=== PATIENT | female | born 1955 | race Caucasian/White ===

== ENCOUNTER 2020-07-07 12:17 | Emergency (ER) | payer BC ==
[2020-07-07 13:34] LABS: HEMOGLOBIN 11.9 gm/dl (12.3-15.3); RED BLOOD COUNT 4.01 M/UL (4.00-5.10); WHITE BLOOD COUNT 9.8 K/UL (4.5-11.0)
[2020-07-07 14:01] LABS: BUN/CREATININE RATIO 20 (0-10)
== END 2020-07-07 15:25 | disposition left against medical advice (07) ==
LOC: ER1 12:17
PROVIDERS: Physician Assistant Medical
DX: J90 Pleural effusion, not elsewhere classified (principal); E87.1 Hypo-osmolality and hyponatremia; R53.83 Other fatigue; E03.9 Hypothyroidism, unspecified; I10 Essential (primary) hypertension; E11.9 Type 2 diabetes mellitus without complications; Z79.899 Other long term (current) drug therapy; Z90.49 Acquired absence of other specified parts of digestive tract
CPT/HCPCS: 36415; 71045; 80053; 81001; 82436; 82533; 82550; 82553; 82570; 83735; 83874; 83880; 83935; 84133; 84300; 84439; 84443; 84484; 84550; 85007; 85027; 85610; 93005; 99285

== ENCOUNTER 2020-07-09 13:21 | Inpatient (IN) | payer BC ==
[~2020-07-09] VITALS: Ht 170.2 cm; Wt 54.4 kg
[2020-07-09 14:48] LABS: HEMOGLOBIN 11.2 gm/dl (12.3-15.3); RED BLOOD COUNT 3.87 M/UL (4.00-5.10)
[2020-07-09 14:56] LABS: WHITE BLOOD COUNT 1.8 K/UL (4.5-11.0)
[2020-07-09 15:54] LABS: BUN/CREATININE RATIO 21 (0-10)
[2020-07-09] MEDS ORDERED: LEVOTHYROXINE88 MCG PO (19:27)
[2020-07-09] MEDS ORDERED: LISINOPRIL10 MG PO (19:28)
[2020-07-09] MEDS ORDERED: GLUCOPHAGE 500500 MG PO (19:29)
[2020-07-10 06:57] LABS: HEMOGLOBIN 10.3 gm/dl (12.3-15.3); RED BLOOD COUNT 3.66 M/UL (4.00-5.10); WHITE BLOOD COUNT 1.6 K/UL (4.5-11.0)
[2020-07-10 07:02] LABS: BUN/CREATININE RATIO 21 (0-10)
[2020-07-10 10:58] LABS: TOTAL PROTEIN, BODY FLUID 3.5 gm/dL
[2020-07-11 04:09] LABS: HEMOGLOBIN 10.4 gm/dl (12.3-15.3); RED BLOOD COUNT 3.48 M/UL (4.00-5.10)
[2020-07-11 04:33] LABS: BUN/CREATININE RATIO 30 (0-10)
[2020-07-11 04:49] LABS: WHITE BLOOD COUNT 14.4 K/UL (4.5-11.0)
[2020-07-12 11:00] LABS: BUN/CREATININE RATIO 21 (0-10)
[2020-07-12 11:26] LABS: HEMOGLOBIN 9.9 gm/dl (12.3-15.3); RED BLOOD COUNT 3.29 M/UL (4.00-5.10); WHITE BLOOD COUNT 12.5 K/UL (4.5-11.0)
--- NOTE | 2020-07-12 14:50 | NUR ---
SPOKE WITH MARYELLEN IN DIETARY, SHE HAD CALLED ME WANTING TO KNOW WHAT THE FAMILY AND THE PATIENT HAD IN MIND FOR NUTRITION. I SPOKE WITH THE PATIENTS AND HE STATES THAT THE PATIENTS WISHES WERE THAT NO TUBING OF ANY KIND BE PLACED IN HER BODY TO MAKE HER LIVE LONGER, THE PATIENT IS A DNR. THE PATIENTS STATES THAT YESTERDAY HE FED HER A BAG OF CHIPS, A BAG OF M&M'S, 2 BOTTLES OF POP, A CUP OF FRUIT AND HALF OF A PIECE OF CHOCOLATE PIE. THE ACCOUNT SERVICES SPECIALIST HAS BEEN NOTIFIED OF THIS AND CASE MANAGEMENT HAS SPOKE WITH THE PATIENT'S WELL AND THEY HAVE DECIDED THAT SHE WILL GO HOME ON HOSPICE. CASE MANAGEMENT STATE THAT IT WILL PROBABLY BE TOMORROW WHEN THE PATIENT WILL GET TO GO HOME. AT THIS TIME THE PATIENT HAS REQUESTED THAT THE BIPAP BE REMOVED AND THE NASAL CANNULA BE APPLIED SO SHE CAN EAT SOME PUDDING AND DRINK SOME WATER. THE PATIENT IS LYING IN BED, NO DISTRESS NOTED, NO COMPLAINT OF PAIN VOICED, AND THE OF THE PATIENT IS FEEDING HER AT THIS TIME. CALL LIGHT WITHIN REACH. HOB UP, STAFF ASSISTING WITH ALL NEEDS.
[2020-07-13 06:39] LABS: BUN/CREATININE RATIO 23 (0-10)
[2020-07-13 08:13] LABS: HEMOGLOBIN 10.5 gm/dl (12.3-15.3); RED BLOOD COUNT 3.59 M/UL (4.00-5.10); WHITE BLOOD COUNT 12.4 K/UL (4.5-11.0)
[2020-07-13] MEDS ORDERED: LOPRESSOR 25 MG25 MG PO (10:34)
[2020-07-13] MEDS ORDERED: AUGMENTIN 875-1 EACH PO (10:35)
[2020-07-13] MEDS ORDERED: IPRAT-ALBUT 0.5-3 ML INH (14:39)
--- NOTE | 2020-07-13 19:51 | NUR ---
PATIENT LEFT FLOOR TO BE DISCHARGED HOME ON [facility]. TRANSPORTED BY EMS. IV TAKEN OUT. VITALS UPON TRANSFER WAS 150/77 (96), 94% ON 7L HIGH TED NC, 27 RR, 98 HR, 98.0 TEMP. PATIENT HAS NO COMPLAINTS. PATIENT LEFT FLOOR AT 1945
== END 2020-07-13 19:45 | disposition home health service (06) | DRG 180 ==
LOC: ER1 13:21 → CDU 16:43 → PROG CARE 16:43
PROVIDERS: Family Medicine; Internal Medicine; ADMIT Internal Medicine Infectious Disease
PROC: 0W9930Z Drainage of Right Pleural Cavity with Drainage Device, Percutaneous Approach (ICD-10-PCS; 2020-07-10)
PROC: 5A09457 Assistance with Respiratory Ventilation, 24-96 Consecutive Hours, Continuous Positive Airway Pressure (ICD-10-PCS; 2020-07-10)
PROC: B24BZZZ Ultrasonography of Heart with Aorta (ICD-10-PCS; principal; 2020-07-11)
PROC: 0BB38ZX Excision of Right Main Bronchus, Via Natural or Artificial Opening Endoscopic, Diagnostic (ICD-10-PCS; 2020-07-12)
DX: C34.91 Malignant neoplasm of unspecified part of right bronchus or lung (principal); J96.01 Acute respiratory failure with hypoxia; J18.9 Pneumonia, unspecified organism; E43 Unspecified severe protein-calorie malnutrition; Z20.822 Contact with and (suspected) exposure to COVID-19; C77.9 Secondary and unspecified malignant neoplasm of lymph node, unspecified; C79.51 Secondary malignant neoplasm of bone; J91.0 Malignant pleural effusion; R04.2 Hemoptysis; E87.1 Hypo-osmolality and hyponatremia; J44.0 Chronic obstructive pulmonary disease with (acute) lower respiratory infection; Z68.1 Body mass index [BMI] 19.9 or less, adult; I27.20 Pulmonary hypertension, unspecified; E83.42 Hypomagnesemia; L89.322 Pressure ulcer of left buttock, stage 2; L89.312 Pressure ulcer of right buttock, stage 2; R63.4 Abnormal weight loss; E83.39 Other disorders of phosphorus metabolism; I10 Essential (primary) hypertension; R77.8 Other specified abnormalities of plasma proteins; R00.0 Tachycardia, unspecified; F17.210 Nicotine dependence, cigarettes, uncomplicated; E03.9 Hypothyroidism, unspecified; E11.9 Type 2 diabetes mellitus without complications; Z98.51 Tubal ligation status; Z90.49 Acquired absence of other specified parts of digestive tract; Z98.42 Cataract extraction status, left eye; Z98.41 Cataract extraction status, right eye; Z79.84 Long term (current) use of oral hypoglycemic drugs; Z79.899 Other long term (current) drug therapy; Z80.1 Family history of malignant neoplasm of trachea, bronchus and lung; Z80.8 Family history of malignant neoplasm of other organs or systems
CPT/HCPCS: ECHO; 0240U; 36415; 36600; 71045; 80048; 80053; 81001; 82436; 82533; 82550; 82553; 82570; 82803; 82962; 83036; 83605; 83615; 83735; 83874; 83880; 83935; 84100; 84133; 84157; 84300; 84439; 84443; 84484; 84550; 85007; 85027; 85610; 85730; 87040; 87070; 87205; 93005; 93306; 94640; 94660; 94664; 94760; 96365; 96375; 99285; A6212; J1205; J1940; J2001; J2250; J2543; J2704; J3475; J7030; J7040; J7050; Q9967

== ENCOUNTER 2020-07-16 03:23 | Inpatient (IN) | payer BC ==
[~2020-07-16] VITALS: Ht 170.2 cm; Wt 54.4 kg
[~2020-07-16 03:23] MED LIST: AUGMENTIN 875-1 EACH PO; GLUCOPHAGE 500500 MG PO; IPRAT-ALBUT 0.5-3 ML INH; LEVOTHYROXINE88 MCG PO; LISINOPRIL10 MG PO; LOPRESSOR 25 MG25 MG PO
[2020-07-16 12:23] LABS: BUN/CREATININE RATIO 23 (0-10)
[2020-07-16 12:29] LABS: HEMOGLOBIN 10.3 gm/dl (12.3-15.3); RED BLOOD COUNT 3.46 M/UL (4.00-5.10); WHITE BLOOD COUNT 13.9 K/UL (4.5-11.0)
[2020-07-17 10:38] LABS: BUN/CREATININE RATIO 18 (0-10)
[2020-07-17] MEDS ORDERED: ROXANOL SOLN20 MG/M1 PO (11:50)
[2020-07-17] MEDS ORDERED: ATIVAN0.5 MG PO (11:50)
[2020-07-17] MEDS ORDERED: OMNICEF 300 MG300 MG PO (15:53)
--- NOTE | 2020-07-17 18:38 | NUR ---
PT HAD A PLEURX CATHETER PLACED BY . PT TOLERATED IT WELL WITH NO COMPLICATIONS. PT HAD NO COMPLAINTS AND WAS STABLE THROUGH THE WHOLE THING. WE PULLED OFF 1050ML OFF OF THE PATIENT.
--- NOTE | 2020-07-17 19:54 | NUR ---
CALLED REPORT TO [facility]. [phone] BENITA BOYCE.
== END 2020-07-17 19:45 | DRG 180 ==
LOC: PROG CARE 10:20
PROVIDERS: Family Medicine; Internal Medicine; ADMIT Internal Medicine
PROC: 0W9930Z Drainage of Right Pleural Cavity with Drainage Device, Percutaneous Approach (ICD-10-PCS; principal; 2020-07-17)
DX: C34.91 Malignant neoplasm of unspecified part of right bronchus or lung (principal); L89.153 Pressure ulcer of sacral region, stage 3; J96.21 Acute and chronic respiratory failure with hypoxia; J91.0 Malignant pleural effusion; C77.9 Secondary and unspecified malignant neoplasm of lymph node, unspecified; C79.51 Secondary malignant neoplasm of bone; E87.2 Acidosis; E87.1 Hypo-osmolality and hyponatremia; M84.48XA Pathological fracture, other site, initial encounter for fracture; R64 Cachexia; Z68.1 Body mass index [BMI] 19.9 or less, adult; Z66 Do not resuscitate; F17.210 Nicotine dependence, cigarettes, uncomplicated; J44.9 Chronic obstructive pulmonary disease, unspecified; I27.20 Pulmonary hypertension, unspecified; D72.829 Elevated white blood cell count, unspecified; E11.9 Type 2 diabetes mellitus without complications; I10 Essential (primary) hypertension; E03.9 Hypothyroidism, unspecified; Z98.51 Tubal ligation status; Z90.49 Acquired absence of other specified parts of digestive tract; Z79.84 Long term (current) use of oral hypoglycemic drugs; Z79.890 Hormone replacement therapy; Z79.899 Other long term (current) drug therapy; Z98.49 Cataract extraction status, unspecified eye; Z80.1 Family history of malignant neoplasm of trachea, bronchus and lung; Z80.8 Family history of malignant neoplasm of other organs or systems
CPT/HCPCS: 36415; 36600; 71045; 80048; 80053; 82803; 82962; 83605; 83735; 83880; 84100; 85007; 85027; 85610; 87086; 94640; 94660; 94664; A6212; J1120; J1940; J2543; J3370; J3475; J7050; J7070